=== PATIENT | male | born 1990 | race Caucasian/White ===

== ENCOUNTER 2018-03-19 21:14 | Emergency (ER) | payer OTHER ==
[~2018-03-19] VITALS: Ht 172.7 cm; Wt 92.8 kg
[2018-03-19 21:17] VITALS: Ht 172.7 cm; Wt 92.8 kg
[2018-03-19] MEDS ORDERED: LIDOCAINE 2%/EPI MPF (SDV) 20 ML VIAL INJ STA (22:08)
[2018-03-19] MEDS ORDERED: DIPHTH/TET/ACEL PERTUSS (ADULT) 0.5 ML VIAL IM* ONE (22:30)
--- NOTE | 2018-03-19 22:44 | ERD ---
ER Documentation Chief Complaint Chief Complaint L knee lacerations due to fall from escalator HPI 27-year-old male presents with laceration to left knee that was sustained today when he fell onto an escalator by accident. He is unsure of his last tetanus vaccination. Ambulatory. States pain is mild. No numbness or tingling. ROS All systems reviewed and are negative except as per history of present illness. Medications Home Meds Reported Medications [None] No Conflict Check 01/28/13 Allergies Allergies: Coded Allergies: No Known Allergy (Unverified , 03/19/18) PMhx/Soc Medical and Surgical Hx: pt denies Medical Hx, pt denies Surgical Hx Hx Alcohol Use: No Hx Substance Use: No Hx Tobacco Use: No Smoking Status: Never smoker FmHx Family History: No diabetes Physical Exam Vitals Vital Signs Date Temp Pulse Resp B/P (MAP) Pulse Ox O2 O2 Flow FiO2 Time Delivery Rate 03/19/18 98.2 78 20 141/84 97 21:17 (103) Physical Exam INITIAL VITAL SIGNS: Reviewed by me GENERAL: Awake, alert and oriented x 4, well appearing, nontoxic, speaking in full sentences. No acute distress HEAD: Atraumatic s. RESPIRATORY: Clear to auscultation bilaterally. Symmetric chest wall rise. No wheezing or rales. No accessory muscle use. CV: Regular rate and rhythm. No murmurs, rubs, or gallops. Lower Extremity left Skin: T shaped laceration on the anterior surface of left knee, 4 cm Compartments: Soft Motor: Full active range of motion hip/knee/ankle/foot Sensation: Intact to light touch FDWS/MF/LF/P surfaces. Bones: Nontender pelvis/knee/proximal tibia/ malleoli/foot Joints: No effusion or laxity Pulses/Perfusion: 2+ DP, Capillary refill < 2 seconds Results 24 hrs Current Medications Medications Dose Sig/Joy Start Time Status Last (Trade) Ordered Route PRN Stop Time Admin Dose Reason Admin Diphtheria/ 0.5 ml ONCE ONCE 03/19/18 DC Tetanus/Acell IM* 22:30 Pertussis 03/19/18 (Adacel) 22:31 Lidocaine/ 20 ml ONCE STAT 03/19/18 DC Epinephrine INJ 22:08 (Xylocaine 03/19/18 2%/ Epi 22:09 Mpf(Sdv)) Procedures/MDM The skin edges of the laceration were infiltrated with 1% lidocaine . The laceration was irrigated with copious amounts of normal saline. The wound was prepped with Betadine. On examination under direct light, there was no foreign body seen. The laceration was repaired with simple interrupted sutures. After repair, there was no continuing bleeding on repair and there did not appear to be any complication related to repair. The patient tolerated the procedure well and the wound was appropriately dressed and bandaged. I ollie mmended the patient return in 2 days for a wound check and 7-10 days for removal of sutures. Patient counseled regarding my diagnostic impression and care plan. Prior to discharge all questions answered. Pt agrees with treatment plan and understands strict return precautions. Pt is instructed to follow up with primary care provider within 24-48 hours. Precautionary instructions provided including instructions to return to the ER if not improving or for any worsening or changing symptoms or concerns. Departure Diagnosis: Primary Impression: Laceration Condition: Stable HÉCTOR MCKEON PA-C Mar 19, 2018 22:44
[2018-03-19 23:11] VITALS: BP 142/86; PULSE 62; RESP 16
== END 2018-03-19 23:13 | disposition home or self-care (01) ==
LOC: FTE 21:14
DX: S81.012A Laceration without foreign body, left knee, initial encounter (principal); W10.0XXA Fall (on)(from) escalator, initial encounter; Y92.9 Unspecified place or not applicable; Z23 Encounter for immunization
CPT/HCPCS: 12002; 90471; 90715; Z7502; Z7610